=== PATIENT | female | born 1935 | race Caucasian/White ===

== ENCOUNTER → 2020-03-05 09:51 | Outpatient (BNVA) | payer MEDICARE, MEDICAID, SELFPAY | PROVIDERS: Family Provider Family Medicine; PCP Family Medicine; Visit Provider Family Medicine | DX: E11.9 Type 2 diabetes mellitus without complications (principal) | CPT/HCPCS: 36416; 82962; 83036 ==

== ENCOUNTER 2020-04-26 06:00 | Outpatient (RCR) | payer MEDICARE, MEDICAID, SELFPAY | END 2020-05-22 23:59 | disposition home or self-care (01) | LOC: GPT 06:00 | PROVIDERS: Family Provider Family Medicine; PCP Family Medicine; Referring Provider Family Medicine; Visit Provider Family Medicine | DX: R26.9 Unspecified abnormalities of gait and mobility (principal) | CPT/HCPCS: 97110; 97112; 97116; 97162; 97530 ==

== ENCOUNTER 2021-04-03 15:40 | Inpatient (IN) | payer MEDICARE, MEDICAID, SELFPAY ==
[2021-04-03 15:47] VITALS: BP 122/84; PULSE 90; RESP 16; TEMP 37.2; O2SAT 93; BMI 30.2
--- NOTE | 2021-04-03 15:50 | CT_ITS ---
WS: [id number] CT cervical spine. Additional two-dimensional coronal and sagittal reconstruction was performed. 04/03 Clinical Data: fall Comparison: None. DLP: 566.[address] scans at [facility] use at least one of these dose optimization techniques: automat ed exposure control; mA and/or kV adjustment per patient size (includes targeted exams where dose is matched to clinical indication); or iterative reconstruction. Findings: No compression fractures are seen. There is disc space narrowing at C4-C5, C5-C6 and C6-C7. There is anterior and posterior osteophyte formation at C5-C7. The spinous processes are in good alignment. Th e odontoid is unremarkable. There is no prevertebral soft tissue swelling. The soft tissues of the ce rvical spine and the lung apices are not remarkable. C2-C3: No disc bulge, canal stenosis or foraminal stenosis is seen. C3-C4: No disc bulge, canal stenosis or foraminal stenosis is seen. C4-C5: Posterior osteophyte formation causing mild canal stenosis. C5-C6: There is posterior osteophyte formation causing mild canal stenosis. C6-C7: There is posterior osteophyte formation causing mild canal stenosis. C7-T1: No disc bulge, canal stenosis or foraminal stenosis is seen. CT/CT cervical spin wo con* [id number] Impression: 1. Negative for cervical spine fracture. 2. Multilevel disc narrowing, posterior and anterior osteophyte formation and m ild canal stenosis.
--- NOTE | 2021-04-03 15:50 | XRR_ITS ---
PROCEDURE INFORMATION: Exam: XR Chest Exam date and time: 04/03/2021 3:50 PM Age: 85 years old Clinical indication: Other: AMS TECHNIQUE: Imaging protocol: XR of the chest. Views: 1 view. COMPARISON: CT cervical spin wo con* [id number] 04/03/2021 4:05 PM FINDINGS: Lungs: Left basilar atelectasis is appreciated. The lungs are otherwise clear. No acute airspace process is seen. Pleural spaces: Unremarkable. No pleural effusion. No pneumothorax. Heart/Mediastinum: Unremarkable. No cardiomegaly. Bones/joints: Chronic proximal left humeral fracture is noted. An orthopedic anchor is also seen in the left humeral neck. No acute fracture is detected XR/XR chest 1V portable [id number] IMPRESSION: Left basilar atelectasis.
--- NOTE | 2021-04-03 15:50 | CT_ITS ---
WS: [id number] CT scan of the head, 04/03/2021 Clinical Data: fall Comparison: None. DLP: 1250.[address] scans at [facility] use at least one of these dose optimization techniques: automat ed exposure control; mA and/or kV adjustment per patient size (includes targeted exams where dose is matched to clinical indication); or iterative reconstruction. Findings: The ventricular system is moderately dilated without shift. No recent infarct or hemorrhage is seen. There are no abnormal intracerebral masses. The cerebellum and brainstem are not remarkable. Bony windows of the skull and skull base show no fractures or erosions. The mastoid air cells, integrated marketing intern al auditory canals, sella turcica and intraorbital contents are unremarkable. There is mucoperiosteal thickening of the right maxillary sinus with nasal septal deviation from left to right. CT/CT head wo con* [id number] Impression: Moderate cerebral atrophy.
--- NOTE | 2021-04-03 15:52 | ECG_ITS ---
[facility] Test Date: 2021-04-03 Pat Name: Miranda Tejada Department: Room: Gender: Female Retail Advertising Account Executive: : 1935 Requested By: Gwyn Leon Order Number: [id number] Reading MD: SIDNEY BYRD Measurements Intervals [place] Rate: 87 P: 46 VT: 171 QRS: -7 QRSD: 89 T: 7 QT: 392 QTc: 473 Interpretive Statements SINUS RHYTHM WITH OCCASIONAL SUPRAVENTRICULAR PREMATURE COMPLEXES MODERATE VOLTAGE CRITERIA FOR LVH, CONSIDER NORMAL VARIANT [MEETS CRITERIA IN ONE OF: R(aVL), S(V1), R(V5), R(V5/V6)+S(V1)] No previous ECG available for comparison Electronically Signed On 04-03-2021 21:22:03 CDT by SIDNEY BYRD [id number]
--- NOTE | 2021-04-03 16:12 | ED_ITS ---
Documented by User: Gwyn Leon MD 04/03/21 16:39 HPI - Fall General: Chief Complaint: Fall Stated Complaint: FALL/ FOUND IN FLOOR/ AMS Time Seen by Provider: 04/03/21 15:50 Source: patient and EMS Mode of arrival: EMS Limitations: no limitations History of Present Illness: HPI Narrative: 85-year-old female with a history of some slight dementia and blindness in the right eye that daughter went to check on her today and she fell in her house and had been laying for 12 to 24 hours. She states she has had some confusion at baseline. Here patient is able answer most my questions appropriately but she does not really remember what happened and has some confusion. She states that she has a neck pain. Denies any worsening improving factors. Patient's granddaughter did test positive for Covid recently and her granddaughter states she has been around her a lot. Patient is afebrile and has no cough. Associated symptoms-after fall: Denies abdominal pain, chest pain, headache(s) or neck pain Review of Systems Const: Denies: fever(s), chills, body aches or change in appetite Eyes: Denies: blurry vision or eye discomfort ENMT: Denies: throat pain or dental pain Card: Denies: chest pain Resp: Denies: dyspnea GI: Denies: abdominal pain, nausea, vomiting or diarrhea : Denies: dysuria Musc: Denies: neck pain or back pain Skin/Breast: Denies: rash Neuro: Denies: headache(s) Psych: Denies: depression Stone/Lymph: Denies: easy bruising All/Imm: Denies: urticaria PFSH ED PFSH: Medical History (Updated 04/03/21 @ 17:51 by Tariq Swift MD) Essential hypertension with goal blood pressure less than 130/80 Mixed hyperlipidemia Social History Smoking and tobacco status: never smoked Alcohol intake: never Physical Exam Const: COMMON NORMALS: no acute distress, patient oriented x3 and healthy appearing HENMT: COMMON NORMALS: normocephalic and atraumatic HEAD & SCALP: n ormocephalic and atraumatic Eye: COMMON NORMALS: Equal, round and reactive pupils present and EOMs intact bilaterally PUPIL: Yes Equal, round and reactive pupils present Neck/C-Spine: COMMON NORMALS: supple OTHER: Neck tenderness Chest: COMMONS NORMALS: normal inspection of the chest and normal palpation of entire chest wall Resp: COMMON NORMALS: normal respiratory effort, No retractions, No use of accessory muscles and clear to auscultation bilaterally AUSCULTATION: clear to auscultation bilaterally Cardio: COMMON NORMALS: regular rate, regular rhythm and No murmurs present (Cardio) RATE: regular rate RHYTHM: regular rhythm GI: COMMON NORMALS: Normal to inspection, nondistended, normoactive bowel sounds present, Soft to palpation, non-tender and no masses PALPATION: Yes Soft to palpation Extremity: COMMON NORMALS: normal to inspection and full ROM Neuro: COMMON NORMALS: patient oriented x3, moves all extremities and no focal motor deficits OTHER: Patient able answer most my questions but does have some confusion Psych: COMMON NORMALS: mental status grossly normal, Normal thought process present and cooperative THOUGHT PROCESS: Normal thought process present Skin: COMMON NORMALS: no rashes or lesions noted and no wounds GENERAL SKIN EXAM: no rashes or lesions noted Course Vital Signs: Vital signs: Vital Signs Temperature 98.9 F 04/03/21 15:47 Pulse Rate 80 04/03/21 17:56 Respiratory Rate 26 H 04/03/21 17:56 Blood Pressure 138/68 04/03/21 17:56 Pulse Oximetry 94 04/03/21 17:56 MDM - Fall Lab Data: Labs: Lab Results 04/03/21 04/03/21 04/03/21 Range/Units 16:17 16:29 16:31 WBC 6.0 (4.0-10.0) 10^3/ uL RBC 6.16 H (4.1-5.3) 10^6/u L Hgb 16.9 H (11.5-15.3) g/dL Hct 52.4 H (37.0-47.0) % MCV 85.1 (81-99) fL MCH 27.4 L (28.0-34.0) pg MCHC 32.3 (30.0-36.0) g/dL RDW 12.8 (12.1-15.1) % Plt Count 189 (130-400) 10^3/c mm MPV 11.5 H (7.4-10.4) fL Neut % (Auto) 70.0 % Lymph % (Auto) 16.4 % Harlan % (Auto) 13.1 % Eos % (Auto) 0.0 % Baso % (Auto) 0.2 % Neut # (Auto) 4.17 (1.8-7.7) 10^3/u L Lymph # (Auto) 1.0 (0.8-4.8) 10^3/u L Harlan # (Auto) 0.8 (0.2-0.9) 10^3/u L Eos # (Auto) 0.0 (0.0-0.8) 10^3/u L Baso # (Auto) 0.0 (0.0-0.1) 10^3/u L Nucleated RBC % (a uto) 0 % Nucleated RBCs # 0.0 /100WBC Sodium (136-145) mmol/L Potassium (3.5-5.1) mmol/L Chloride (98-107) mmol/L Carbon Dioxide (22-29) mmol/L Anion Gap (5-19) BUN (8-23) mg/dL Creatinine (0.5-0.9) mg/dL GFR Calculation Glucose (65-115) mg/dL POC Glucose 166 H (70-110) mg/dL Calculated Osmolal ity (285-295) mOsm/k g Calcium (8.5-10.5) mg/dL Total Bilirubin (0.15-1.2) mg/dL AST (0-32) U/L ALT (0-33) U/L Alkaline Phosphata se (35-105) IU/L Creatine Kinase (26-192) U/L Total Protein (6.6-8.7) g/dL Albumin (3.5-5.2) g/dL Globulin (1.3-4.6) g/dL Urine Color (Yellow) Urine Appearance (CLEAR) Urine pH (5-7) Ur Specific Gravit y (1.005-1.030) Urine Protein (Negative) Urine Glucose (UA) (Normal) Urine Ketones (Negative) Urine Blood (Negative) Urine Nitrate (Negative) Urine Bilirubin (Negative) Urine Urobilinogen (Negative) mg/dL Ur Leukocyte Michelle ase (Negative) Urine RBC (0-2) /hpf Urine WBC (0-5) /hpf Ur Squamous Epith Cells (0-5) /hpf Amorphous Sediment Urine Bacteria (NONE) /hpf Fine Granular Cast s /lpf SARS-CoV-2 Ag (Rap id) Positive H (Negative) 04/03/21 04/03/21 Range/Units 16:31 16:42 WBC (4.0-10.0) 10^3/ uL RBC (4.1-5.3) 10^6/u L Hgb (11.5-15.3) g/dL Hct (37.0-47.0) % MCV (81-99) fL MCH (28.0-34.0) pg MCHC (30.0-36.0) g/dL RDW (12.1-15.1) % Plt Count (130-400) 10^3/c mm MPV (7.4-10.4) fL Neut % (Auto) % Lymph % (Auto) % Harlan % (Auto) % Eos % (Auto) % Baso % (Auto) % Neut # (Auto) (1.8-7.7) 10^3/u L Lymph # (Auto) (0.8-4.8) 10^3/u L Harlan # (Auto) (0.2-0.9) 10^3/u L Eos # (Auto) (0.0-0.8) 10^3/u L Baso # (Auto) (0.0-0.1) 10^3/u L Nucleated RBC % (a uto) % Nucleated RBCs # /100WBC Sodium 141 (136-145) mmol/L Potassium 3.6 (3.5-5.1) mmol/L Chloride 99 (98-107) mmol/L Carbon Dioxide 23 (22-29) mmol/L Anion Gap 22.6 H (5-19) BUN 14 (8-23) mg/dL Creatinine 0.6 (0.5-0.9) mg/dL GFR Calculation Not Reportable Glucose 303 H (65-115) mg/dL POC Glucose (70-110) mg/dL Calculated Osmolal ity 304 H (285-295) mOsm/k g Calcium 8.5 (8.5-10.5) mg/dL Total Bilirubin 0.4 (0.15-1.2) mg/dL AST 43 H (0-32) U/L ALT 23 (0-33) U/L Alkaline Phosphata se 81 (35-105) IU/L Creatine Kinase 1076 H* (26-192) U/L Total Protein 6.7 (6.6-8.7) g/dL Albumin 3.6 (3.5-5.2) g/dL Globulin 3.1 (1.3-4.6) g/dL Urine Color Yellow (Yellow) Urine Appearance Sl hazy (CLEAR) Urine pH 5 (5-7) Ur Specific Gravit y 1.020 (1.005-1.030) Urine Protein 1+ H (Negative) Urine Glucose (UA) 4+ H (Normal) Urine Ketones 2+ H (Negative) Urine Blood 3+ H (Negative) Urine Nitrate Negative (Negative) Urine Bilirubin Neg (Negative) Urine Urobilinogen Norm (Negative) mg/dL Ur Leukocyte Michelle ase Negative (Negative) Urine RBC 0-4 H (0-2) /hpf Urine WBC Rare (0-5) /hpf Ur Squamous Epith Cells 5-10 H (0-5) /hpf Amorphous Sediment Not Reportable Urine Bacteria 1+ H (NONE) /hpf Fine Granular Cast s 0-4 H /lpf SARS-CoV-2 Ag (Rap id) (Negative) Imaging Data^: CT Head: Attestation: I personally reviewed and interpreted this imaging study as follows: Radiologist's impression: [address] [address] [address] Scan Report Signed Patient: Miranda Tejada Unit #: [id number] : 1935 Age/Sex: 85 / F ADM Date: 04/03/21 Loc: ER Room/Bed: Attending Dr: Ordering Provider/Ordering MD: Gwyn Leon MD Date of Service: 04/03/21 Procedure(s): CT head wo con* [id number] Accession Number(s): [id number] Report Number: [id number] WS: [id number] CT scan of the head, 04/03/2021 Clinical Data: fall Comparison: None. DLP: 1250.[address] scans at [facility] use at least one of these dose optimization techniques: automated exposure control; mA and/or kV adjustment per patient size (includes targeted exams where dose is matched to clinical indication); or iterative reconstruction. Findings: The ventricular system is moderately dilated without shift. No recent infarct or hemorrhage is seen. There are no abnormal intracerebral masses. The cerebellum and brainstem are not remarkable. Bony windows of the skull and skull base show no fractures or erosions. The mastoid air cells, internal auditory canals, sella turcica and intraorbital contents are unremarkable. There is mucoperiosteal thickening of the right maxillary sinus with nasal septal deviation from left to right. CT/CT head wo con* [id number] Impression: Moderate cerebral atrophy. Dictated By: Cheryl Pfeiffer MD Signed By: Cheryl Pfeiffer MD Signed Date/Time: 04/03/211617 DD/ [address]: Radiologist's impression: [address] [address] [address] Scan Report Signed Patient: Miranda Tejada Unit #: [id number] : 1935 9 Age/Sex: 85 / F ADM Date: 04/03/21 Loc: ER Room/Bed: Attending Dr: Ordering Provider/Ordering MD: Gwyn Leon MD Date of Service: 04/03/21 Procedure(s): CT cervical spin wo con* [id number] Accession Number(s): [id number] Report Number: [id number] WS: [id number] CT cervical spine. Additional two-dimensional coronal and sagittal reconstruction was performed. 04/03/2021 Clinical Data: fall Comparison: None. DLP: 566.[address] scans at [facility] use at least one of these dose optimization techniques: automated exposure control; mA and/or kV adjustment per patient size (includes targeted exams where dose is matched to clinical indication); or iterative reconstruction. Findings: No compression fractures are seen. There is disc space narrowing at C4-C5, C5- C6 and C6-C7. There is anterior and posterior osteophyte formation at C5-C7. The spinous processes are in good alignment. The odontoid is unremarkable. There is no prevertebral soft tissue swelling. The soft tissues of the cervical spine and the lung apices are not remarkable. C2-C3: No disc bulge, canal stenosis or foraminal stenosis is seen. C3-C4: No disc bulge, canal stenosis or foraminal stenosis is seen. C4-C5: Posterior osteophyte formation causing mild canal stenosis. C5-C6: There is posterior osteophyte formation causing mild canal stenosis. C6-C7: There is posterior osteophyte formation causing mild canal stenosis. C7-T1: No disc bulge, canal stenosis or foraminal stenosis is seen. CT/CT cervical spin wo con* [id number] Impression: 1. Negative for cervical spine fracture. 2. Multilevel disc narrowing, posterior and anterior osteophyte formation and mild canal stenosis. Dictated By: Cheryl Pfeiffer MD Signed By: Cheryl Pfeiffer MD Signed Date/Time: 04/03/211621 Discharge Plan Discharge Patient Disposition: Admitted As Inpatient Clinical Impression: Rhabdomyolysis, COVID-19 Condition: Stable Coding Level of Care Code ED Highway Administrative Engineer for Chg Fwd Exam Comprehensive Documented by User: Tariq Swift MD 04/03/21 18:01 HPI - Fall General: Chief Complaint: Fall Stated Complaint: FALL/ FOUND IN FLOOR/ AMS Time Seen by Provider: 04/03/21 15:50 PFSH ED PFSH: Medical History (Updated 04/03/21 @ 17:51 by Tariq Swift MD) Essential hypertension with goal blood pressure less than 130/80 Mixed hyperlipidemia Social History Smoking and tobacco status: never smoked Alcohol intake: never Course Vital Signs: Vital signs: Vital Signs Temperature 98.9 F 04/03/21 15:47 Pulse Rate 80 04/03/21 17:56 Respiratory Rate 26 H 04/03/21 17:56 Blood Pressure 138/68 04/03/21 17:56 Pulse Oximetry 94 04/03/21 17:56 MDM - Fall MDM Narrative: Medical decision making narrative: 85-year-old female with recent Covid diagnosis from 10 days ago presenting to the emergency room after she was found down. On exam, patient has no complaints of tenderness or signs of trauma. Imaging study within normal limit today. Patient is noted to be hemoconcentrated with a hemoglobin of 6, UA positive for ketones, CPK of 1000. Will be admitted to the hospital for placement given that she lives at home by herself and rehydration. Lab Data: Labs: Lab Results 04/03/21 04/03/21 04/03/21 Range/Units 16:17 16:29 16:31 WBC 6.0 (4.0-10.0) 10^3/ uL RBC 6.16 H (4.1-5.3) 10^6/u L Hgb 16.9 H (11.5-15.3) g/dL Hct 52.4 H (37.0-47.0) % MCV 85.1 (81-99) fL MCH 27.4 L (28.0-34.0) pg MCHC 32.3 (30.0-36.0) g/dL RDW 12.8 (12.1-15.1) % Plt Count 189 (130-400) 10^3/c mm MPV 11.5 H (7.4-10.4) fL Neut % (Auto) 70.0 % Lymph % (Auto) 16.4 % Harlan % (Auto) 13.1 % Eos % (Auto) 0.0 % Baso % (Auto) 0.2 % Neut # (Auto) 4.17 (1.8-7.7) 10^3/u L Lymph # (Auto) 1.0 (0.8-4.8) 10^3/u L Harlan # (Auto) 0.8 (0.2-0.9) 10^3/u L Eos # (Auto) 0.0 (0.0-0.8) 10^3/u L Baso # (Auto) 0.0 (0.0-0.1) 10^3/u L Nucleated RBC % (a uto) 0 % Nucleated RBCs # 0.0 /100WBC Sodium (136-145) mmol/L Potassium (3.5-5.1) mmol/L Chloride (98-107) mmol/L Carbon Dioxide (22-29) mmol/L Anion Gap (5-19) BUN (8-23) mg/dL Creatinine (0.5-0.9) mg/dL GFR Calculation Glucose (65-115) mg/dL POC Glucose 166 H (70-110) mg/dL Calculated Osmolal ity (285-295) mOsm/k g Calcium (8.5-10.5) mg/dL Total Bilirubin (0.15-1.2) mg/dL AST (0-32) U/L ALT (0-33) U/L Alkaline Phosphata se (35-105) IU/L Creatine Kinase (26-192) U/L Total Protein (6.6-8.7) g/dL Albumin (3.5-5.2) g/dL Globulin (1.3-4.6) g/dL Urine Color (Yellow) Urine Appearance (CLEAR) Urine pH (5-7) Ur Specific Gravit y (1.005-1.030) Urine Protein (Negative) Urine Glucose (UA) (Normal) Urine Ketones (Negative) Urine Blood (Negative) Urine Nitrate (Negative) Urine Bilirubin (Negative) Urine Urobilinogen (Negative) mg/dL Ur Leukocyte Michelle ase (Negative) Urine RBC (0-2) /hpf Urine WBC (0-5) /hpf Ur Squamous Epith Cells (0-5) /hpf Amorphous Sediment Urine Bacteria (NONE) /hpf Fine Granular Cast s /lpf SARS-CoV-2 Ag (Rap id) Positive H (Negative) 04/03/21 04/03/21 Range/Units 16:31 16:42 WBC (4.0-10.0) 10^3/ uL RBC (4.1-5.3) 10^6/u L Hgb (11.5-15.3) g/dL Hct (37.0-47.0) % MCV (81-99) fL MCH (28.0-34.0) pg MCHC (30.0-36.0) g/dL RDW (12.1-15.1) % Plt Count (130-400) 10^3/c mm MPV (7.4-10.4) fL Neut % (Auto) % Lymph % (Auto) % Harlan % (Auto) % Eos % (Auto) % Baso % (Auto) % Neut # (Auto) (1.8-7.7) 10^3/u L Lymph # (Auto) (0.8-4.8) 10^3/u L Harlan # (Auto) (0.2-0.9) 10^3/u L Eos # (Auto) (0.0-0.8) 10^3/u L Baso # (Auto) (0.0-0.1) 10^3/u L Nucleated RBC % (a uto) % Nucleated RBCs # /100WBC Sodium 141 (136-145) mmol/L Potassium 3.6 (3.5-5.1) mmol/L Chloride 99 (98-107) mmol/L Carbon Dioxide 23 (22-29) mmol/L Anion Gap 22.6 H (5-19) BUN 14 (8-23) mg/dL Creatinine 0.6 (0.5-0.9) mg/dL GFR Calculation Not Reportable Glucose 303 H (65-115) mg/dL POC Glucose (70-110) mg/dL Calculated Osmolal ity 304 H (285-295) mOsm/k g Calcium 8.5 (8.5-10.5) mg/dL Total Bilirubin 0.4 (0.15-1.2) mg/dL AST 43 H (0-32) U/L ALT 23 (0-33) U/L Alkaline Phosphata se 81 (35-105) IU/L Creatine Kinase 1076 H* (26-192) U/L Total Protein 6.7 (6.6-8.7) g/dL Albumin 3.6 (3.5-5.2) g/dL Globulin 3.1 (1.3-4.6) g/dL Urine Color Yellow (Yellow) Urine Appearance Sl hazy (CLEAR) Urine pH 5 (5-7) Ur Specific Gravit y 1.020 (1.005-1.030) Urine Protein 1+ H (Negative) Urine Glucose (UA) 4+ H (Normal) Urine Ketones 2+ H (Negative) Urine Blood 3+ H (Negative) Urine Nitrate Negative (Negative) Urine Bilirubin Neg (Negative) Urine Urobilinogen Norm (Negative) mg/dL Ur Leukocyte Michelle ase Negative (Negative) Urine RBC 0-4 H (0-2) /hpf Urine WBC Rare (0-5) /hpf Ur Squamous Epith Cells 5-10 H (0-5) /hpf Amorphous Sediment Not Reportable Urine Bacteria 1+ H (NONE) /hpf Fine Granular Cast s 0-4 H /lpf SARS-CoV-2 Ag (Rap id) (Negative) Discharge Plan Discharge Patient Disposition: Admitted As Inpatient Clinical Impression: Rhabdomyolysis, COVID-19 Condition: Stable Coding Level of Care Code ED Highway Administrative Engineer for Maribelg Fwd Exam Comprehensive
[2021-04-03 16:30] LABS: Glucose Point of Care 166 mg/dL (70-110)
[2021-04-03 17:10] LABS: Basophils % 0.2 %; Hematocrit 52.4 % (37.0-47.0); Hemoglobin 16.9 g/dL (11.5-15.3); Lymphocytes % 16.4 %; Mean Corpuscular HGB Conc 32.3 g/dL (30.0-36.0); Mean Corpuscular Hemoglobin 27.4 pg (28.0-34.0); Mean Corpuscular Volume 85.1 fL (81-99); Mean Platelet Volume 11.5 fL (7.4-10.4); Monocytes # 0.8 10^3/uL (0.2-0.9); Monocytes % 13.1 %; Neutrophils # 4.17 10^3/uL (1.8-7.7); Nucleated Red Blood Cells % 0 %; Platelet Count 189 10^3/cmm (130-400); Red Blood Count 6.16 10^6/uL (4.1-5.3); Red Cell Distribution Width 12.8 % (12.1-15.1)
[2021-04-03 17:28] LABS: SARS Covid-2 Antigen Positive (Negative)
[2021-04-03 17:31] LABS: Add Urine Microscopic? YES; Bilirubin Urine Neg (Negative); Blood Urine 3+ (Negative); Glucose Urine UA 4+ (Normal); Ketones Urine 2+ (Negative); Leukocyte Esterase Urine Negative (Negative); Nitrate Urine Negative (Negative); Protein Urine 1+ (Negative); Urine Appearance SL Hazy (CLEAR); Urine Color Yellow (Yellow); Urobilinogen Urine Norm (Negative); pH Urine 5 (5-7)
[2021-04-03 17:33] LABS: Add Urine Culture? No; Bacteria Urine 1+ /hpf; Fine Granular Casts Urine 0-4 /lpf; RBC Urine 0-4 /hpf (0-2); WBC Urine RARE /hpf (0-5)
[2021-04-03 17:42] LABS: Alanine Aminotransferase 23 U/L (0-33); Albumin Level 3.6 g/dL (3.5-5.2); Alkaline Phosphatase 81 IU/L (35-105); Anion Gap 22.6 (5-19); Aspartate Amino Transferase 43 U/L (0-32); Blood Urea Nitrogen 14 mg/dL (8-23); Calcium 8.5 mg/dL (8.5-10.5); Carbon Dioxide 23 mmol/L (22-29); Chloride 99 mmol/L (98-107); Creatinine Clr Calc Pharmacy 46.8393; Globulin 3.1 g/dL (1.3-4.6); Glucose 303 mg/dL (65-115); Osmolality Calculated 304 mOsm/kg (285-295); Potassium 3.6 mmol/L (3.5-5.1); Sodium 141 mmol/L (136-145); Total Bilirubin 0.4 mg/dL (0.15-1.2); Total Protein 6.7 g/dL (6.6-8.7)
[2021-04-03 17:47] LABS: Creatine Phosphokinase 1076 U/L (26-192)
[2021-04-03 17:56] VITALS: BP 138/68; PULSE 80; RESP 26; O2SAT 94
[2021-04-03 19:11] VITALS: BP 145/72; PULSE 78; RESP 18; O2SAT 94
[2021-04-03] MEDS: sodium chloride 0.9% 1,000 ML 75 ML IV (19:31)
[2021-04-03] MEDS: enoxaparin 40 mg/0.4 mL Syringe SUBCUT (19:31)
--- NOTE | 2021-04-03 19:42 | P.HP_ITS ---
Providers/Chief Complaint Admitting Physician: Ryan Horton Primary Care Provider: Luis Sparks DO Chief Complaint: FALL/ FOUND IN FLOOR/ AMS History of Present Illness 85-year-old female with a past medical history significant for dementia, right eye blindness,Hypertension, hyperlipidemia, and diabetes mellitus who presented to the hospital after she was found lying on the ground for over 12 hours. Patient apparently lives at home alone. Given her dementia she was not able to provide history leading to. ER visit.Upon arrival to emergency room patients initial laboratory workup showed a WBC of 6.0, hemoglobin 16.9, hematocrit of 52.4 and a platelet count of 189.Sodium 141, potassium 3.6, chloride 99, bicarb 23, BUN 14 and creatinine of 0.6. Glucose was elevated at 3 3.AST of 43, ALT 23, alkaline phosphatase 81. CPK level was 1076. Urinalysis was negative for nitrites and leukocyte esterase.COVID-19 antigen was positive.Vital signs on arrival showed a temperature of 98.7, heart rate of 88, respiratory rate of 16, oxygen saturation 95% and blood pressure of 164/100.Imaging studies included a chest x-ray which showed left basilar atelectasis otherwise unremarkable. Head and cervical CT did not show any evidence of acute abnormality. Upon admission patient was started on IVF. Review of Systems General: Reports: ROS unobtainable due to mental status Medications/Allergies Home Medications Medication Instructions Recorded Confirmed Last Taken Type blood sugar diagnostic #200 each 03/07/20 04/03/21 Unknown Rx lancets 18 gauge #200 each 03/07/20 04/03/21 Unknown Rx latanoprost 0.005 % eye drops 1 drop OPHTHALMIC (EYE) QDAY 03/19/20 04/03/21 04/02/21 History timolol 0.25 % eye drops 1 drop OPHTHALMIC (EYE) BID 03/19/20 04/03/21 Unknown History blood-glucose meter #1 each 06/28/20 04/03/21 Unknown Rx metformin 500 mg tablet 500 mg PO .COMPLEX #60 tab 07/15/20 04/03/21 Unknown Rx Celebrex 200 mg PO DAILY 04/03/21 04/03/21 Unknown History enalapril maleate 20 mg PO DAILY 04/03/21 04/03/21 Unknown History Allergies Allergy/AdvReac Type Severity Reaction Status Date / Time adhesive AdvReac Mild unknown Verified 03/19/20 10:07 PFSH Acute PFSH: Medical History (Updated 04/03/21 @ 19:50 by Ryan Horton MD) Diabetes mellitus type 2, uncontrolled Essential hypertension with goal blood pressure less than 130/80 Mixed hyperlipidemia Social History Smoking and tobacco status: never smoked Alcohol intake: never Vitals/I&O/Wt Last Vital Signs Temp 98.9 F 04/03/21 15:47 Pulse 78 04/03/21 19:11 Resp 18 04/03/21 19:11 BP 145/72 04/03/21 19:11 Pulse Ox 94 04/03/21 19:11 Weight last 48 hrs Weight 72.575 kg Physical Exam Narrative: EXAM NARRATIVE: General - Alert awake however slight confusion HEENT : right retinal opacification, left eye normal CVS: NSR CHEST : Non-labored respiration Abd : NT, ND Ext no edema Data : 04/03/21 16:31 04/03/21 16:31 A&P Assessment and plan (1) Fall: Unwitnessed CT head/CT cervical spine - no acute fx C/o right hip pain - will xray r/o fracture Pain control Fall precautions PT/OT consult Unclear if LOC Status: Acute (2) Rhabdomyolysis: Mild CPK elevation NS at 75cc/hr Repeat CPK in am Status: Acute (3) COVID-19: No respiratory complaints Chest xray - Left basilar atelectasis Weaned to RA in ER. No indication for decadron or remdesivir Will check covid labs in am contact / droplet precautions Status: Acute (4) Mixed hyperlipidemia: verify home meds Status: Acute (5) Essential hypertension with goal blood pressure less than 130/80: Verify home meds Status: Acute (6) Diabetes mellitus type 2, uncontrolled: Diabetic diet Sliding scale insulin A1c in am Hold metformin Status: Acute (7) DVT prophylaxis: Lovenox 40 mg SQ daily Status: Acute Additional A&P Information Family requested placement to SNF Consult SW/CM to arrange. Attestations Medical Necessity Statement*: anticipate less than 2 midnight stay in hospital for eval and treatment of fall, acute rhabdo rq ivf and placement. Time Spent in Patient Care: Greater than 35 minutes (>than 50% of time spent in counselling and/or direct pt care on unit) . Coding Level of Care Code Acute Heavy Duty Truck Mechanic for Chg Fwd Diagnoses Fall W19.XXXA Rhabdomyolysis M62.82 COVID-19 U07.1 Mixed hyperlipidemia E78.2 Essential hypertension with goal blood pressure less than 130/80 I10 Diabetes mellitus type 2, uncontrolled E11.65 DVT prophylaxis Z29.9
[2021-04-03 20:00] VITALS: BP 140/74; PULSE 89; RESP 16; TEMP 37.2; O2SAT 90
[2021-04-03] MEDS: sodium chloride 0.9% 1,000 ML 100 ML IV (20:39)
[2021-04-03 20:48] LABS: Glucose Point of Care 292 mg/dL (70-110)
[2021-04-04] VITALS (8 sets, daily range): BP systolic 154–183; BP diastolic 71–81; PULSE 56–83; RESP 16–24; TEMP 36.4–37.4; O2SAT 90–93
[2021-04-04] MEDS: sodium chloride 0.9% 1,000 ML 100 ML IV ×2 (02:22→15:39)
--- NOTE | 2021-04-04 03:54 | PC.NURSE ---
TELEPHONE ORDER/READ BACK TO CHANGE DIET FROM REG TO CC (MD GRECIA)
[2021-04-04 05:27] LABS: Basophils % 0.2 %; Hematocrit 46.9 % (37.0-47.0); Lymphocytes # 1.8 10^3/uL (0.8-4.8); Lymphocytes % 26.9 %; Mean Corpuscular Hemoglobin 27.7 pg (28.0-34.0); Mean Corpuscular Volume 86.5 fL (81-99); Mean Platelet Volume 11.2 fL (7.4-10.4); Monocytes # 0.9 10^3/uL (0.2-0.9); Monocytes % 13.5 %; Neutrophils % 59.2 %; Nucleated Red Blood Cells % 0 %; Platelet Count 177 10^3/cmm (130-400); Red Blood Count 5.42 10^6/uL (4.1-5.3); White Blood Count 6.6 10^3/uL (4.0-10.0)
[2021-04-04 05:44] LABS: Estmated Average Glucose 214; Hemoglobin A1C 9.1 % (4.0-6.0)
[2021-04-04 06:01] LABS: Alanine Aminotransferase 19 U/L (0-33); Albumin Level 2.7 g/dL (3.5-5.2); Alkaline Phosphatase 67 IU/L (35-105); Anion Gap 14.9 (5-19); Aspartate Amino Transferase 32 U/L (0-32); Blood Urea Nitrogen 14 mg/dL (8-23); Calcium 7.6 mg/dL (8.5-10.5); Carbon Dioxide 24 mmol/L (22-29); Chloride 106 mmol/L (98-107); Creatinine Clr Calc Pharmacy 46.8393; Globulin 2.6 g/dL (1.3-4.6); Glucose 159 mg/dL (65-115); Osmolality Calculated 298 mOsm/kg (285-295); Potassium 2.9 mmol/L (3.5-5.1); Sodium 142 mmol/L (136-145); Total Bilirubin 0.3 mg/dL (0.15-1.2); Total Protein 5.3 g/dL (6.6-8.7)
[2021-04-04 06:09] LABS: Procalcitonin 0.26 ng/mL (0-0.5)
[2021-04-04 06:17] LABS: Creatine Phosphokinase 824 U/L (26-192)
--- NOTE | 2021-04-04 06:21 | PC.NURSE ---
CRITICAL LAB - CK OF 824 DOWN FROM [id number] CALLED TO ON-CALL PROVIDER BY NURSE SAILAJA TRIANA.
[2021-04-04 06:45] LABS: Glucose Point of Care 168 mg/dL (70-110)
[2021-04-04] MEDS: famotidine 20 mg Tablet PO ×2 (09:08→18:01)
--- NOTE | 2021-04-04 10:36 | P.PN_ITS ---
Subjective Subjective: Interval history: Stable overnight Medications: Reviewed: Yes Vitals/I&O/Wt Last Vital Signs Temp 97.5 F L 04/04/21 20:00 Pulse 76 04/04/21 20:00 Resp 24 H 04/04/21 20:00 BP 158/74 04/04/21 20:00 Pulse Ox 90 04/04/21 20:00 04/04/21 04/04/21 04/05/21 14:59 22:59 06:59 Intake Total 1000 / 1000 1240 / 2240 Balance 1000 / 1000 1240 / 2240 Weight last 48 hrs Weight 72.575 kg Physical Exam Narrative: EXAM NARRATIVE: General - Alert awake however slight confusion HEENT : right retinal opacification, left eye normal CVS: NSR CHEST : Non-labored respiration Abd : NT, ND Ext no edema Data : 04/04/21 04:58 04/04/21 04:58 A&P Assessment and plan (1) Fall: Unwitnessed CT head/CT cervical spine - no acute fx C/o right hip pain - will xray r/o fracture Pain control Fall precautions PT/OT consult Unclear if LOC Status: Acute (2) Rhabdomyolysis: Improving Status: Acute (3) COVID-19: No respiratory complaints Chest xray - Left basilar atelectasis Weaned to RA in ER. No indication for decadron or remdesivir Will check covid labs in am contact / droplet precautions Status: Acute (4) Mixed hyperlipidemia: verify home meds Status: Acute (5) Essential hypertension with goal blood pressure less than 130/80: Verify home meds Status: Acute (6) Diabetes mellitus type 2, uncontrolled: Diabetic diet Sliding scale insulin A1c in am Hold metformin Status: Acute (7) DVT prophylaxis: Lovenox 40 mg SQ daily Status: Acute Additional A&P Information Family requested placement to SNF Consult SW/CM to arrange. Attestations Medical Necessity Statement*: will require further hospitalization for management of rhabdo Time Spent in Patient Care: Greater than 35 minutes (>than 50% of time spent in counselling and/or direct pt care on unit) . Coding Level of Care Code Acute Certified Medical Transcriptionist for [facility] Fwd Diagnoses Fall W19.XXXA Rhabdomyolysis M62.82 COVID-19 U07.1 Mixed hyperlipidemia E78.2 Essential hypertension with goal blood pressure less than 130/80 I10 Diabetes mellitus type 2, uncontrolled E11.65 DVT prophylaxis Z29.9
[2021-04-04 10:44] LABS: Glucose Point of Care 159 mg/dL (70-110)
--- NOTE | 2021-04-04 10:56 | PC.CHAP ---
Pastoral Care Encounter/Spiritual Assessment Type of Contact [] Declined registered sales assistant visit [] Patient/Family/Request visit [] Outpatient visit [] Follow-up visit [] Physician referral [] Code/Alert [] Routine visit [] Staff referral [] Actively dying [] Patient sleeping [] Family support [] [] Out of room [] Palliative care [] [] Receiving care in room [] Pre-surgical visit [] Trauma [] Long length of stay [] ICU visit [xx] Other: Isolation Relational/Emotional Strength [] Patient feels connected with others/family/visitors/staff [] Distress [] Loneliness/isolation [] Abandonment Spirituality of Patient [] Person of Ava [] Attends Methodist of their Ava [] Believes in Prayer [] Reads Bible or Alevism materials [] There are Spiritual issues to be addressed Caustic Mixer Interventions [] Prayer [] Active listening [] Non-anxious presence [] Spiritual/emotional support [] Crisis/trauma care [] Spiritual counseling [] Bereavement support [] Provided bereavement packet [] Provided Bible/devotional materials [] Provided toy/stuffed animal, coloring book to patient or family member [] Provided Communion [] Anointing/[place] [] Salvation [] Completed spiritual assessment [] Other: Impact on Illness or Injury [] Angry [] Fearful [] Anxious [] Often cries [] Exhaustion [] Unable to work [] Unable to attend restoration [] Unable to walk/stand [] Unable to read [] Unable to drive [] Unable to eat/drink [] Unable to sleep [] Unable to be with family [] Patient intubated [] Other: Summary Time spent with patient
[2021-04-04 17:51] LABS: Glucose Point of Care 135 mg/dL (70-110)
[2021-04-04] MEDS: enoxaparin 40 mg/0.4 mL Syringe SUBCUT (18:01)
[2021-04-04 21:42] LABS: Glucose Point of Care 192 mg/dL (70-110)
--- NOTE | 2021-04-04 23:00 | PC.NURSE ---
PROVIDER CALLED (MD GRECIA) R/T PT K+ RESULT OF 2.9. TELEPHONE ORDERS/READBACK TO REPLACE WITH POTASSIUM CHLORIDE PO 60 MEQ X1 AND REDRAW LAB IN AM.
[2021-04-04] MEDS: potassium chloride ER 20 mEq Tablet 60 MEQ PO (23:23)
[2021-04-05] VITALS (11 sets, daily range): BP systolic 130–165; BP diastolic 68–76; PULSE 69–94; RESP 16–31; TEMP 36.5–36.9; O2SAT 88–94
[2021-04-05] MEDS: sodium chloride 0.9% 1,000 ML 100 ML IV (01:43)
--- NOTE | 2021-04-05 05:32 | PC.NURSE ---
Shift Note Frequent safety and comfort rounds continue. Orders and/or nursing care completed as indicated. Patient monitored for response to intervention and treatment(s). Education provided includes[SAFETY, ROUTINE TURNING, FLUID REPLACEMENT, AND MEDICATIONS]. Patient and/or door to door sales representative ABLE TO VERBALIZED UNDERSTANDING. Will continue to monitor.
[2021-04-05 07:05] LABS: Glucose Point of Care 148 mg/dL (70-110)
[2021-04-05] MEDS: famotidine 20 mg Tablet PO ×2 (07:38→18:06)
[2021-04-05 07:43] LABS: Alanine Aminotransferase 17 U/L (0-33); Albumin Level 2.5 g/dL (3.5-5.2); Alkaline Phosphatase 56 IU/L (35-105); Anion Gap 14.6 (5-19); Aspartate Amino Transferase 32 U/L (0-32); Blood Urea Nitrogen 12 mg/dL (8-23); Calcium 7.2 mg/dL (8.5-10.5); Carbon Dioxide 21 mmol/L (22-29); Chloride 111 mmol/L (98-107); Creatine Phosphokinase 291 U/L (26-192); Creatinine Clr Calc Pharmacy 46.8393; Globulin 2.4 g/dL (1.3-4.6); Glucose 154 mg/dL (65-115); Osmolality Calculated 299 mOsm/kg (285-295); Potassium 3.6 mmol/L (3.5-5.1); Sodium 143 mmol/L (136-145); Total Bilirubin 0.3 mg/dL (0.15-1.2); Total Protein 4.9 g/dL (6.6-8.7)
--- NOTE | 2021-04-05 13:16 | PM.PN ---
Subjective Subjective: Interval history: No new clinical events overnight. Patient was however started on O2. Was noted to have saturations in the high 80s. Did not appear to be in any respiratory distress. Medications: Reviewed: Yes Vitals/I&O/Wt Last Vital Signs Temp 98.1 F 04/05/21 11:05 Pulse 73 04/05/21 11:05 Resp 19 H 04/05/21 11:05 BP 158/68 04/05/21 11:05 Pulse Ox 88 L 04/05/21 11:05 04/04/21 04/05/21 04/05/21 22:59 06:59 14:59 Intake Total 1240 / 2240 1250 / 3490 978.333 / 978.333 Balance 1240 / 2240 1250 / 3490 978.333 / 978.333 Weight last 48 hrs Weight 72.575 kg Physical Exam Narrative: EXAM NARRATIVE: General - Alert awake however slight confusion HEENT : right retinal opacification, left eye normal CVS: NSR CHEST : Non-labored respiration Abd : NT, ND Ext no edema Data : 04/04/21 04:58 04/05/21 06:56 A&P Assessment and plan (1) Fall: Unwitnessed CT head/CT cervical spine - no acute fx C/o right hip pain - will xray r/o fracture Pain control Fall precautions PT/OT consult Unclear if LOC Status: Acute (2) Rhabdomyolysis: Resolved will DC IV fluid Status: Acute (3) COVID-19: No respiratory complaints Chest xray - Left basilar atelectasis Weaned to RA in ER. -Home O2 eval Supplemental oxygen as needed No indication for remdesivir Decadron 6 mg IV daily started Will check covid labs in am Contact / droplet precautions Status: Acute (4) Mixed hyperlipidemia: Status: Acute (5) Essential hypertension with goal blood pressure less than 130/80: Status: Acute (6) Diabetes mellitus type 2, uncontrolled: Diabetic diet Sliding scale insulin Exacerbated with Decadron Hold metformin Status: Acute (7) DVT prophylaxis: Lovenox 40 mg SQ daily Status: Acute Attestations Medical Necessity Statement*: Require further hospitalization for managmenet of COVID-19 pneumonia Time Spent in Patient Care: Greater than 35 minutes (>than 50% of time spent in counselling and/or direct pt care on unit). Coding Level of Care Code Acute Airport Maintenance Laborer for [facility] Fwd Diagnoses Fall W19.XXXA Rhabdomyolysis M62.82 COVID-19 U07.1 Mixed hyperlipidemia E78.2 Essential hypertension with goal blood pressure less than 130/80 I10 Diabetes mellitus type 2, uncontrolled E11.65 DVT prophylaxis Z29.9
[2021-04-05] MEDS: dexamethasone 10 mg/mL INJ 6 MG IVP (14:09)
--- NOTE | 2021-04-05 16:24 | CTR_ITS ---
PROCEDURE INFORMATION: Exam: CTA Chest With Contrast Exam date and time: 04/05/2021 4:24 PM Age: 85 years old Clinical indication: Other: Increased 02 and covid +; Additional info: Increasing o2 requirements rule out pe TECHNIQUE: Imaging protocol: Computed tomographic angiography of the chest with contrast. 3D rendering (Not supervised by radiologist): MIP and/or 3D reconstructed images were created by the technologist. Radiation optimization: All CT scans at this facility use at least one of these dose optimization techniques: automated exposure control; mA and/or kV adjustment per patient size (includes targeted exams where dose is matched to clinical indication); or iterative reconstruction. Contrast material: OMNI 350; Contrast volume: 62 ml; Contrast route: INTRAVENOUS (IV); COMPARISON: CR XR chest 1V portable [id number] 04/03/2021 4:17 PM RADIATION DOSE METRICS: Total DLP (mGy-cm): 450.08 FINDINGS: Pulmonary arteries: Normal. No pulmonary emboli. Aorta: Unremarkable. No aortic aneurysm. No aortic dissection. Lungs: Scattered geographic ground-glass attenuation lesions throughout both lungs. Moderate emphysema. Regions of pulmonary parenchymal sparing are evident. Negative for endobronchial obstruction. No bronchiectasis. No peripheral honeycombing. Pleural spaces: Unremarkable. No pneumothorax. No pleural effusion. Heart: Unremarkable. No cardiomegaly. No pericardial effusion. Lymph nodes: Unremarkable. No enlarged lymph nodes. Bones/joints: Unremarkable. No acute fracture. Soft tissues: Unremarkable. CT/CT angio chest PE protcl [id number] IMPRESSION: 1. Negative for pulmonary embolism. 2. Scattered airspace disease bilaterally with nonspecific pattern. 3. Imaging features can be seen with COVID-19 pneumonia, though are nonspecific and can occur with a variety of infectious and noninfectious processes. (Reference: Karlo) REFERENCES: Karlo Rodriguez, et al., Radiological Society of [place] Expert Consensus Statement on Reporting Chest CT Findings Related to COVID-19. Endorsed by the Society of Thoracic Radiology, the [place] [employer], and RSNA. Published November 15, 2019. Radiation Dose CTDIVOL = (mGy): DLP = 450.08 (mGy-cm)
[2021-04-05] MEDS: iohexol 350 mg/mL 100 mL Btl IV (17:06)
[2021-04-05 17:44] LABS: Glucose Point of Care 237 mg/dL (70-110)
[2021-04-05] MEDS: remdesivir 200 MG in sodium chloride 0.9% (100 ml) 100 ML 100 MG IV (18:06)
[2021-04-05] MEDS: enoxaparin 40 mg/0.4 mL Syringe SUBCUT (18:06)
[2021-04-05] MEDS: FUROsemide 10 mg/mL SDV 4mL 40 MG IVP (18:06)
[2021-04-05 21:44] LABS: Glucose Point of Care 250 mg/dL (70-110)
[2021-04-05] MEDS: ipratropium-albuterol 3 mL Neb INHALATION (22:07)
[2021-04-06] VITALS (16 sets, daily range): BP systolic 119–139; BP diastolic 59–93; PULSE 76–93; RESP 20–29; TEMP 36.4–37.8; O2SAT 87–100
[2021-04-06] MEDS: ipratropium-albuterol 3 mL Neb INHALATION ×4 (02:43→20:41)
[2021-04-06 06:30] LABS: Hematocrit 46.3 % (37.0-47.0); Hemoglobin 15.2 g/dL (11.5-15.3); Lymphocytes # 0.9 10^3/uL (0.8-4.8); Lymphocytes % 22.6 %; Mean Corpuscular HGB Conc 32.8 g/dL (30.0-36.0); Mean Corpuscular Hemoglobin 27.5 pg (28.0-34.0); Mean Corpuscular Volume 83.9 fl (81-99); Mean Platelet Volume 11.1 fL (7.4-10.4); Monocytes # 0.7 10^3/uL (0.2-0.9); Monocytes % 17.2 %; Neutrophils # 2.33 10^3/uL (1.8-7.7); Neutrophils % 59.9 %; Nucleated Red Blood Cells % 0 %; Platelet Count 205 10^3/cmm (130-400); Red Blood Count 5.52 10^6/uL (4.1-5.3); Red Cell Distribution Width 13.1 % (12.1-15.1); White Blood Count 3.9 10^3/uL (4.0-10.0)
[2021-04-06 06:46] LABS: Glucose Point of Care 170 mg/dL (70-110)
[2021-04-06 06:52] LABS: D Dimer 1.78 ug/mIFEU (0-0.59)
[2021-04-06 07:27] LABS: Procalcitonin 0.16 ng/mL (0-0.5)
[2021-04-06 07:40] LABS: Alanine Aminotransferase 19 U/L (0-33); Albumin Level 2.7 g/dL (3.5-5.2); Alkaline Phosphatase 61 IU/L (35-105); Anion Gap 17.1 (5-19); Aspartate Amino Transferase 38 U/L (0-32); Blood Urea Nitrogen 16 mg/dL (8-23); C Reactive Protein 144.1 mg/L (0.0-4.9); Calcium 7.6 mg/dL (8.5-10.5); Carbon Dioxide 26 mmol/L (22-29); Chloride 103 mmol/L (98-107); Creatine Phosphokinase 147 U/L (26-192); Creatinine Clr Calc Pharmacy 46.8393; Glucose 176 mg/dL (65-115); Osmolality Calculated 301 mOsm/kg (285-295); Potassium 3.1 mmol/L (3.5-5.1); Sodium 143 mmol/L (136-145); Total Bilirubin 0.3 mg/dL (0.15-1.2); Total Protein 5.7 g/dL (6.6-8.7)
[2021-04-06 08:00] LABS: Ferritin 2265 ng/mL (15-150)
--- NOTE | 2021-04-06 08:47 | PC.SOCIAL ---
IM follow up reviewed with Granddaughter Yola since patient is currently on COVID unit. She verbalized understanding and patient is not likely to dc today due to increase in O2 requirement.
[2021-04-06] MEDS: famotidine 20 mg Tablet PO ×2 (09:00→18:14)
[2021-04-06 13:17] LABS: Glucose Point of Care 172 mg/dL (70-110)
[2021-04-06] MEDS: dexamethasone 10 mg/mL INJ 6 MG IVP (14:14)
--- NOTE | 2021-04-06 15:12 | P.PN_ITS ---
Subjective Subjective: Interval history: Patient was noted have worsening respiratory distress overnight. Was placed on high-flow nasal cannula. In transferred to the COVID-19 step-down unit. Addition was started on Remdesivir. Medications: Reviewed: Yes Vitals/I&O/Wt Last Vital Signs Temp 98.0 F 04/06/21 11:09 Pulse 90 04/06/21 11:09 Resp 29 H 04/06/21 11:09 BP 139/93 04/06/21 11:09 Pulse Ox 90 04/06/21 11:09 04/06/21 04/06/21 04/06/21 06:59 14:59 22:59 Intake Total 420 / 1618.333 Balance 420 / 1618.333 Physical Exam Narrative: EXAM NARRATIVE: General - Alert awake however slight confusion HEENT : right retinal opacification, left eye normal CVS: NSR CHEST : Non-labored respiration Abd : NT, ND Ext no edema Data : 04/06/21 06:10 04/06/21 06:10 A&P Assessment and plan (1) COVID-19: Noted to have worsening respiratory distress Chest xray - Left basilar atelectasis Started on high-flow nasal cannula. Wean as tolerated Started on remdesivir Decadron 6 mg IV daily Will check covid labs in am Contact / droplet precautions Status: Acute (2) Fall: Unwitnessed CT head/CT cervical spine - no acute fx C/o right hip pain - will xray r/o fracture Pain control Fall precautions PT/OT consult Unclear if LOC Status: Acute (3) Rhabdomyolysis: Resolved Status: Acute (4) Mixed hyperlipidemia: Status: Acute (5) Essential hypertension with goal blood pressure less than 130/80: Status: Acute (6) Diabetes mellitus type 2, uncontrolled: Diabetic diet Sliding scale insulin Exacerbated with Decadron Hold metformin Status: Acute (7) DVT prophylaxis: Lovenox 40 mg SQ daily Status: Acute Attestations Medical Necessity Statement*: require further hospitalization for management of COVID-19 pneumonia requiring supplemental oxygen and IV Remdesivir. Coding Level of Care Code Acute Aviation Electronics Technician for [facility] Fwd Diagnoses COVID-19 U07.1 Fall W19.XXXA Rhabdomyolysis M62.82 Mixed hyperlipidemia E78.2 Essential hypertension with goal blood pressure less than 130/80 I10 Diabetes mellitus type 2, uncontrolled E11.65 DVT prophylaxis Z29.9
[2021-04-06 17:31] LABS: Glucose Point of Care 200 mg/dL (70-110)
[2021-04-06] MEDS: enoxaparin 40 mg/0.4 mL Syringe SUBCUT (18:13)
[2021-04-06] MEDS: remdesivir 100 MG in sodium chloride 0.9% (100 ml) 100 ML IV (18:14)
[2021-04-06 20:16] LABS: Glucose Point of Care 253 mg/dL (70-110)
[2021-04-07] VITALS (38 sets, daily range): BP systolic 91–139; BP diastolic 49–91; PULSE 77–109; RESP 22–31; TEMP 36.7–37.3; O2SAT 82–97
[2021-04-07] MEDS: ipratropium-albuterol 3 mL Neb INHALATION ×4 (02:04→20:20)
[2021-04-07 04:37] LABS: ABG PCO2 39.4 mmHg (35-45); ABG PH Result 7.51 (7.35-7.45); Arterial Blood Gas Hematocrit 51.8 % (37-47); Base Excess ABG 7.4 mmol/L (-2.0-2.0); Blood Gas Allen Test Pos; Blood Gas Sample Site Radial, left; Blood Gas Sample Type Arterial; HCO3 ABG 31.2 mmol/L (22-26); PO2 ABG 48.3 mmHg (80.0-100.0)
--- NOTE | 2021-04-07 07:00 | XRR_ITS ---
PROCEDURE INFORMATION: Exam: XR Chest Exam date and time: 04/07/2021 7:00 AM Age: 85 years old Clinical indication: Condition or disease; Lung condition and disease; Respiratory failure TECHNIQUE: Imaging protocol: XR of the chest. Views: 1 view. COMPARISON: CR XR chest 1V portable [id number] 04/03/2021 4:17 PM FINDINGS: Lungs: Persistent increased lung markings and interval worsening of hazy airspace opacities involving mainly the left lower lobe, highly concerning for pneumonia. Pleural spaces: Unremarkable. No pleural effusion. No pneumothorax. Heart/Mediastinum: Click stable heart old healed fracture deformity of the left proximal humerus noted. Bones/joints: See Heart/Mediastinum finding. XR/XR chest 1V portable [id number] IMPRESSION: Interval worsening of left lower lobe airspace opacity, concerning for pneumonia.
[2021-04-07 07:09] LABS: Basophils % 0.1 %; Hematocrit 49.8 % (37.0-47.0); Hemoglobin 16.2 g/dL (11.5-15.3); Lymphocytes # 1.1 10^3/uL (0.8-4.8); Lymphocytes % 14.5 %; Mean Corpuscular HGB Conc 32.5 g/dL (30.0-36.0); Mean Corpuscular Hemoglobin 27.7 pg (28.0-34.0); Mean Corpuscular Volume 85.3 fl (81-99); Mean Platelet Volume 11.2 fL (7.4-10.4); Monocytes # 1.1 10^3/uL (0.2-0.9); Monocytes % 13.5 %; Neutrophils # 5.62 10^3/uL (1.8-7.7); Neutrophils % 71.5 %; Nucleated Red Blood Cells % 0 %; Platelet Count 264 10^3/cmm (130-400); Red Blood Count 5.84 10^6/uL (4.1-5.3); Red Cell Distribution Width 13.5 % (12.1-15.1); White Blood Count 7.9 10^3/uL (4.0-10.0)
[2021-04-07 07:15] LABS: Glucose Point of Care 206 mg/dL (70-110)
[2021-04-07 07:33] LABS: D Dimer 1.61 ug/mIFEU (0-0.59)
[2021-04-07 07:37] LABS: Alanine Aminotransferase 16 U/L (0-33); Albumin Level 2.7 g/dL (3.5-5.2); Alkaline Phosphatase 67 IU/L (35-105); Anion Gap 15.1 (5-19); Aspartate Amino Transferase 31 U/L (0-32); Blood Urea Nitrogen 26 mg/dL (8-23); C Reactive Protein 116.4 mg/L (0.0-4.9); Calcium 7.7 mg/dL (8.5-10.5); Carbon Dioxide 28 mmol/L (22-29); Chloride 102 mmol/L (98-107); Creatinine Clr Calc Pharmacy 46.8393; Glucose 211 mg/dL (65-115); Osmolality Calculated 305 mOsm/kg (285-295); Potassium 3.1 mmol/L (3.5-5.1); Sodium 142 mmol/L (136-145); Total Bilirubin 0.4 mg/dL (0.15-1.2); Total Protein 5.7 g/dL (6.6-8.7)
[2021-04-07 07:46] LABS: Procalcitonin 0.18 ng/mL (0-0.5)
[2021-04-07 07:57] LABS: Ferritin 2646 ng/mL (15-150)
[2021-04-07] MEDS: famotidine 20 mg Tablet PO ×2 (08:18→17:34)
--- NOTE | 2021-04-07 08:59 | PC.CHAP ---
Pastoral Care Encounter/Spiritual Assessment Type of Contact [] Declined assembler adjuster visit [] Patient/Family/Request visit [] Outpatient visit [] Follow-up visit [] Physician referral [] Code/Alert [x] Routine visit [] Staff referral [] Actively dying [] Patient sleeping [] Family support [] [] Out of room [] Palliative care [] [x] Receiving care in room [] Pre-surgical visit [] Trauma [] Long length of stay [] ICU visit [x] Other:2a Relational/Emotional Strength [] Patient feels connected with others/family/visitors/staff [] Distress [] Loneliness/isolation [] Abandonment Spirituality of Patient [] Person of Ava [] Attends Moravian of their Ava [] Believes in Prayer [] Reads Bible or Pentecostalism materials [] There are Spiritual issues to be addressed Computer Networking Instructor Adjunct Interventions [x] Prayer [] Active listening [] Non-anxious presence [] Spiritual/emotional support [] Crisis/trauma care [] Spiritual counseling [] Bereavement support [] Provided bereavement packet [] Provided Bible/devotional materials [] Provided toy/stuffed animal, coloring book to patient or family member [] Provided Communion [] Anointing/[place] [] Salvation [x] Completed spiritual assessment [] Other: Impact on Illness or Injury [] Angry [] Fearful [] Anxious [] Often cries [] Exhaustion [] Unable to work [] Unable to attend religious [] Unable to walk/stand [] Unable to read [] Unable to drive [] Unable to eat/drink [] Unable to sleep [] Unable to be with family [] Patient intubated [] Other: Summary Time spent with patient
[2021-04-07 11:44] LABS: Glucose Point of Care 197 mg/dL (70-110)
[2021-04-07] MEDS: dexamethasone 10 mg/mL INJ 6 MG IVP (12:36)
--- NOTE | 2021-04-07 13:41 | PC.OT ---
Occupational therapy attempted, patient sleeping deeply and would not wake enough to participate. Will attempt again tomorrow.
--- NOTE | 2021-04-07 14:32 | PC.SLP ---
Patient not seen due to BiPap requirements and unable to be awakened to participate in therapy.
[2021-04-07] MEDS: FUROsemide 10 mg/mL SDV 4mL 40 MG IVP (15:22)
[2021-04-07 17:24] LABS: Glucose Point of Care 213 mg/dL (70-110)
[2021-04-07] MEDS: remdesivir 100 MG in sodium chloride 0.9% (100 ml) 100 ML IV (17:34)
[2021-04-07] MEDS: enoxaparin 40 mg/0.4 mL Syringe SUBCUT (17:34)
[2021-04-07] MEDS: nystatin powder 15 gm Btl 1 APPLIC TOPICAL (17:35)
--- NOTE | 2021-04-07 17:38 | PM.PN ---
Subjective Subjective: Interval history: Patient was placed on BiPAP overnight. Medications: Reviewed: Yes Vitals/I&O/Wt Last Vital Signs Temp 98.7 F 04/07/21 16:00 Pulse 89 04/07/21 17:00 Resp 23 H 04/07/21 16:00 BP 135/76 04/07/21 16:00 Pulse Ox 90 04/07/21 17:00 04/07/21 04/07/21 04/07/21 06:59 14:59 22:59 Intake Total 0 / 0 Balance 0 / 0 Physical Exam Narrative: EXAM NARRATIVE: General - on BiPAP HEENT : right retinal opacification, left eye normal CVS: NSR CHEST : on BiPAP Abd : NT, ND Ext no edema Urinary Catheter Management^: Bruce: Cath Placed During This Visit: yes Urinary Catheter Date of Insertion: 04/07/21 Urinary Catheter Time of Insertion: 16:13 Data : 04/07/21 05:34 04/07/21 05:34 A&P Assessment and plan (1) COVID-19: Noted to have worsening respiratory distress Chest xray - Left basilar atelectasis Remdesivir 5 day treatment protocol Decadron 6 mg IV daily total 10 day treatment Continue BiPAP p.r.n. Wean as tolerated Initiate on Precedex Addition would give Lasix 20 mg IV x1 Monitoring COVID-19 inflammatory labs Contact / droplet precautions Status: Acute (2) Fall: Unwitnessed CT head/CT cervical spine - no acute fx C/o right hip pain - will xray r/o fracture Pain control Fall precautions PT/OT consult Unclear if LOC Status: Acute (3) Rhabdomyolysis: Resolved Status: Acute (4) Mixed hyperlipidemia: Status: Acute (5) Essential hypertension with goal blood pressure less than 130/80: Status: Acute (6) Diabetes mellitus type 2, uncontrolled: Diabetic diet Sliding scale insulin Exacerbated with Decadron Hold metformin Status: Acute (7) DVT prophylaxis: Lovenox 40 mg SQ daily Status: Acute Attestations Medical Necessity Statement*: Will require further hospitalization for management of COVID-19 related respiratory failure requiring positive-pressure ventilation Time Spent in Patient Care: Greater than 35 minutes (>than 50% of time spent in counselling and/or direct pt care on unit). Coding Level of Care Code Acute Biophysics Teacher for [facility] Fwd Diagnoses COVID-19 U07.1 Fall W19.XXXA Rhabdomyolysis M62.82 Mixed hyperlipidemia E78.2 Essential hypertension with goal blood pressure less than 130/80 I10 Diabetes mellitus type 2, uncontrolled E11.65 DVT prophylaxis Z29.9
[2021-04-07] MEDS: FUROsemide 10 mg/mL SDV 2mL 20 MG IVP (17:58)
[2021-04-07] MEDS: dexmedetomidine 400 MCG in sodium chloride 0.9% (100 ml) 100 ML IV (17:58)
--- NOTE | 2021-04-07 17:58 | PC.RESP ---
RT Shift Note Frequent safety and respiratory rounds continue. Orders completed as indicated. Patient monitored pre and post treatments throughout shift. Patient tolerated treatments appropriately. Condition did not change. Patient and/or loan representative educated on respiratory treatment and medications. Patient and/or loan representative needs reinforcement on education. Will continue to monitor patient progress.
[2021-04-07] MEDS: potassium chloride premix 100 ML 50 MEQ IV (18:17)
[2021-04-07] MEDS: lidocaine 1% INJ 20 mL 5 ML IV (18:18)
[2021-04-07 21:17] LABS: Glucose Point of Care 320 mg/dL (70-110)
--- NOTE | 2021-04-07 22:20 | PC.RESP ---
RT Shift Note Frequent safety and respiratory rounds continue. Orders completed as indicated. Patient monitored pre and post treatments throughout shift. Patient [Did] tolerate treatments appropriately. Condition [DidNotChange]. Patient and/or automobile rental representative educated on respiratory treatment and medications. Patient and/or automobile rental representative [ResponseToTeaching]. Will continue to monitor patient progress.
[2021-04-07 23:48] LABS: Glucose Point of Care 97 mg/dL (70-110)
[2021-04-08] VITALS (89 sets, daily range): BP systolic 72–159; BP diastolic 44–113; PULSE 66–106; RESP 17–37; TEMP 36.2–37.7; O2SAT 77–98
[2021-04-08] MEDS: ipratropium-albuterol 3 mL Neb INHALATION ×4 (02:54→20:05)
--- NOTE | 2021-04-08 06:30 | PC.NURSE ---
The blood sugar that was taken at 2326 on the did not belong to this patient, it actually belong to the patient staying in .
--- NOTE | 2021-04-08 07:32 | PC.NURSE ---
At the beginning of the overnight caregiver the patient had an oxygen saturation hovering in the low 80's. There was a precedex drip that had been started and as that trip was titrated up the patient began to calm more down, and thier oxygen saturation crept up into the 90's. The patient during the entire shift was quite resistant to any care and even managed to pull out her IV in the left forearm/wrist. The blood pressure and heart rate were elevated at times, but this was during episodes of the patient being awake, moving around, and trying to pulls things out. The blood sugar at the beginning of shift was high enough that the patient received 10 units of short-acting insulin. The patient remained on BiPAP the entire shift.
[2021-04-08 07:52] LABS: Glucose Point of Care 275 mg/dL (70-110)
--- NOTE | 2021-04-08 07:56 | P.PN_ITS ---
Subjective Subjective: Interval history: Patient was requiring 100% FiO2.Discussed care with patients family and code status was changed to do resuscitate. Medications: Reviewed: Yes Vitals/I&O/Wt Last Vital Signs Temp 97.8 F 04/09/21 04:55 Pulse 114 H 04/09/21 04:55 Resp 18 04/09/21 04:55 BP 124/91 04/09/21 04:55 Pulse Ox 88 L 04/09/21 04:55 04/08/21 04/09/21 04/09/21 22:59 06:59 14:59 Intake Total 100 / 417.734 Output Total 175 / 175 100 / 275 Balance -75 / 242.734 -100 / 142.734 Physical Exam Narrative: EXAM NARRATIVE: General - on BiPAP HEENT : right retinal opacification, left eye normal CVS: NSR CHEST : on BiPAP Abd : NT, ND Ext no edema Urinary Catheter Management^: Bruce: Cath Placed During This Visit: yes Reason for Continuing Indwelling Catheter: Other Urinary Catheter Date of Insertion: 04/07/21 Urinary Catheter Time of Insertion: 16:13 Data : 04/07/21 05:34 04/07/21 05:34 A&P Assessment and plan (1) COVID-19: Noted to have worsening respiratory distress Chest xray - Left basilar atelectasis Remdesivir 5 day treatment protocol Decadron 6 mg IV daily total 10 day treatment Continue BiPAP p.r.n. Wean as tolerated Hold Precedex due to hypotension Monitoring COVID-19 inflammatory labs Contact / droplet precautions Status: Acute (2) Fall: Unwitnessed CT head/CT cervical spine - no acute fx C/o right hip pain - will xray r/o fracture Pain control Fall precautions PT/OT consult Unclear if LOC Status: Acute (3) Rhabdomyolysis: Resolved Status: Acute (4) Mixed hyperlipidemia: Status: Acute (5) Essential hypertension with goal blood pressure less than 130/80: Status: Acute (6) Diabetes mellitus type 2, uncontrolled: Diabetic diet Sliding scale insulin Exacerbated with Decadron Hold metformin Status: Acute (7) DVT prophylaxis: Lovenox 40 mg SQ daily Status: Acute Additional A&P Information care discussed with family. Transition to a and D. Progressive decline. Prognosis guarded Attestations Medical Necessity Statement*: require further hospitalization for management of COVID-19 Time Spent in Patient Care: Greater than 35 minutes (>than 50% of time spent in counselling and/or direct pt care on unit) . Coding Level of Care Code Acute Unified Communications Engineer for [facility] Fwd Diagnoses COVID-19 U07.1 Fall W19.XXXA Rhabdomyolysis M62.82 Mixed hyperlipidemia E78.2 Essential hypertension with goal blood pressure less than 130/80 I10 Diabetes mellitus type 2, uncontrolled E11.65 DVT prophylaxis Z29.9
[2021-04-08] MEDS: nystatin powder 15 gm Btl 1 APPLIC TOPICAL ×2 (08:10→17:06)
--- NOTE | 2021-04-08 09:16 | PC.CHAP ---
Pastoral Care Encounter/Spiritual Assessment Type of Contact [] Declined site safety representative visit [] Patient/Family/Request visit [] Outpatient visit [] Follow-up visit [] Physician referral [] Code/Alert [x] Routine visit [] Staff referral [] Actively dying [] Patient sleeping [] Family support [] [] Out of room [] Palliative care [] [] Receiving care in room [] Pre-surgical visit [] Trauma [] Long length of stay [] ICU visit [x] Other: 2a Relational/Emotional Strength [] Patient feels connected with others/family/visitors/staff [] Distress [] Loneliness/isolation [] Abandonment Spirituality of Patient [] Person of Ava [] Attends Taoist of their Ava [] Believes in Prayer [] Reads Bible or Anabaptist materials [] There are Spiritual issues to be addressed Assembler Type Bar And Segment Interventions [x] Prayer [] Active listening [] Non-anxious presence [] Spiritual/emotional support [] Crisis/trauma care [] Spiritual counseling [] Bereavement support [] Provided bereavement packet [] Provided Bible/devotional materials [] Provided toy/stuffed animal, coloring book to patient or family member [] Provided Communion [] Anointing/[place] [] Salvation [x] Completed spiritual assessment [] Other: Impact on Illness or Injury [] Angry [] Fearful [] Anxious [] Often cries [] Exhaustion [] Unable to work [] Unable to attend latter day [] Unable to walk/stand [] Unable to read [] Unable to drive [] Unable to eat/drink [] Unable to sleep [] Unable to be with family [] Patient intubated [] Other: Summary Time spent with patient
--- NOTE | 2021-04-08 10:51 | PC.SOCIAL ---
IM follow up not reviewed today do not anticipate dc in 2 days. CM to follow up at next appt time to review.
[2021-04-08 10:58] LABS: Glucose Point of Care 241 mg/dL (70-110)
--- NOTE | 2021-04-08 11:11 | PC.NURSE ---
Verbally spoke to Yola Jean's granddaughter after Dr. Horton and she states that her and her mother Lakshmi are trying to get power of intake clinician. Both Lakshmi and Yola request that the patient be a DNR at this time.
[2021-04-08] MEDS: dexamethasone 10 mg/mL INJ 6 MG IVP (11:15)
--- NOTE | 2021-04-08 11:23 | PC.OT ---
Discharging patient from skilled occupational therapy at this time. She has been unable to participate meaningfully and is not rehab appropriate at this time. Please send new orders if status of patient changes.
[2021-04-08] MEDS: sodium chloride 0.9% 250 ML IV (13:27)
--- NOTE | 2021-04-08 15:45 | PC.RESP ---
RT Shift Note Frequent safety and respiratory rounds continue. Orders completed as indicated. Patient monitored pre and post treatments throughout shift. Patient tolerate treatments appropriately. Condition did not change. Patient and/or service support representative educated on respiratory treatment and medications. Patient and/or service support representative needs reinforcement. Will continue to monitor patient progress.
[2021-04-08 16:59] LABS: Glucose Point of Care 127 mg/dL (70-110)
[2021-04-08] MEDS: remdesivir 100 MG in sodium chloride 0.9% (100 ml) 100 ML 200 MG IV (17:06)
[2021-04-08] MEDS: enoxaparin 40 mg/0.4 mL Syringe SUBCUT (17:44)
--- NOTE | 2021-04-08 17:56 | PC.RESP ---
RT Shift Note Frequent safety and respiratory rounds continue. Orders completed as indicated. Patient monitored pre and post treatments throughout shift. Patient tolerated treatments appropriately. Condition did not change. Patient and/or wholesale representative educated on respiratory treatment and medications. Patient and/or wholesale representative verbalized understanding. Will continue to monitor patient progress.
--- NOTE | 2021-04-08 18:24 | PC.NURSE ---
Patient's granddaughter called this nurse at this time to leave her work phone number in case she is needed. Phone number is [phone]--Yola Scott.
[2021-04-08 20:57] LABS: Glucose Point of Care 261 mg/dL (70-110)
[2021-04-09] VITALS (18 sets, daily range): BP systolic 72–124; BP diastolic 42–91; PULSE 64–122; RESP 17–32; TEMP 36.4–36.8; O2SAT 87–94
[2021-04-09 05:36] LABS: Glucose Point of Care 282 mg/dL (70-110)
[2021-04-09] MEDS: nystatin powder 15 gm Btl 1 APPLIC TOPICAL ×2 (07:47→16:53)
[2021-04-09 08:08] LABS: Glucose Point of Care 259 mg/dL (70-110)
[2021-04-09] MEDS: ipratropium-albuterol 3 mL Neb INHALATION ×2 (08:50→20:06)
[2021-04-09 11:44] LABS: Glucose Point of Care 305 mg/dL (70-110)
[2021-04-09] MEDS: dexamethasone 10 mg/mL INJ 6 MG IVP (11:52)
--- NOTE | 2021-04-09 12:59 | P.PN_ITS ---
Subjective Subjective: Interval history: Patient remained on 100% FiO2. Noted to have desaturations with any type exertion. Also confused and agitated. No fevers overnight. Medications: Reviewed: Yes Vitals/I&O/Wt Last Vital Signs Temp 98.1 F 04/09/21 11:50 Pulse 118 H 04/09/21 11:50 Resp 27 H 04/09/21 11:50 BP 99/77 04/09/21 11:50 Pulse Ox 90 04/09/21 11:50 04/08/21 04/09/21 04/09/21 22:59 06:59 14:59 Intake Total 100 / 417.734 Output Total 175 / 175 100 / 275 Balance -75 / 242.734 -100 / 142.734 Physical Exam Narrative: EXAM NARRATIVE: General - on BiPAP HEENT : right retinal opacification, left eye normal CVS: NSR CHEST : on BiPAP Abd : NT, ND Ext no edema Urinary Catheter Management^: Bruce: Cath Placed During This Visit: yes Reason for Continuing Indwelling Catheter: Other Urinary Catheter Date of Insertion: 04/07/21 Urinary Catheter Time of Insertion: 16:13 Data : 04/07/21 05:34 04/07/21 05:34 A&P Assessment and plan (1) COVID-19: Noted to have worsening respiratory distress Chest xray - Left basilar atelectasis Remdesivir Completed 5 day treatment protocol Decadron 6 mg IV daily total 10 day treatment Continue BiPAP -wean as tolerated Hold Precedex due to hypotension Monitoring COVID-19 inflammatory labs Ativan added for agitation Contact / droplet precautions Status: Acute (2) Fall: Unwitnessed CT head/CT cervical spine - no acute fx C/o right hip pain - will xray r/o fracture Pain control Fall precautions PT/OT consult Unclear if LOC Status: Acute (3) Rhabdomyolysis: Resolved Status: Acute (4) Mixed hyperlipidemia: Status: Acute (5) Essential hypertension with goal blood pressure less than 130/80: Status: Acute (6) Diabetes mellitus type 2, uncontrolled: Diabetic diet Sliding scale insulin Exacerbated with Decadron Hold metformin Status: Acute (7) DVT prophylaxis: Lovenox 40 mg SQ daily Status: Acute Additional A&P Information Prognosis -remains guarded Attestations Medical Necessity Statement*: will require further hospitalization for management of COVID-19 Time Spent in Patient Care: Greater than 35 minutes (>than 50% of time spent in counselling and/or direct pt care on unit) . Coding Level of Care Code Acute Dumpcart Driver for Chg Fwd Diagnoses COVID-19 U07.1 Fall W19.XXXA Rhabdomyolysis M62.82 Mixed hyperlipidemia E78.2 Essential hypertension with goal blood pressure less than 130/80 I10 Diabetes mellitus type 2, uncontrolled E11.65 DVT prophylaxis Z29.9
[2021-04-09] MEDS: LORazepam 2 mg/mL INJ 1 mL 0.5 MG IVP (13:39)
[2021-04-09 14:32] LABS: Basophils # 0.1 10^3/uL (0.0-0.1); Basophils % 0.8 %; Eosinophils # 0.1 10^3/uL (0.0-0.8); Eosinophils % 0.4 %; Hemoglobin 18.3 g/dL (11.5-15.3); Lymphocytes # 0.7 10^3/uL (0.8-4.8); Lymphocytes % 4.3 %; Mean Corpuscular HGB Conc 30.5 g/dL (30.0-36.0); Mean Corpuscular Hemoglobin 27.4 pg (28.0-34.0); Mean Corpuscular Volume 89.8 fl (81-99); Mean Platelet Volume 12.2 fL (7.4-10.4); Monocytes # 0.8 10^3/uL (0.2-0.9); Neutrophils % 88.8 %; Nucleated Red Blood Cells % 0 %; Platelet Count 240 10^3/cmm (130-400); Red Blood Count 6.68 10^6/uL (4.1-5.3); Red Cell Distribution Width 13.7 % (12.1-15.1); White Blood Count 16.7 10^3/uL (4.0-10.0)
[2021-04-09 15:05] LABS: Alanine Aminotransferase 13 U/L (0-33); Albumin Level 2.4 g/dL (3.5-5.2); Alkaline Phosphatase 86 IU/L (35-105); Blood Urea Nitrogen 74 mg/dL (8-23); Carbon Dioxide 27 mmol/L (22-29); Chloride 108 mmol/L (98-107); Creatinine Clr Calc Pharmacy 41.6349; Globulin 3.3 g/dL (1.3-4.6); Glucose 235 mg/dL (65-115); Osmolality Calculated 339 mOsm/kg (285-295); Sodium 150 mmol/L (136-145); Total Bilirubin 0.6 mg/dL (0.15-1.2); Total Protein 5.7 g/dL (6.6-8.7)
[2021-04-09 15:08] LABS: Aspartate Amino Transferase 17 U/L (0-32)
[2021-04-09 15:10] LABS: Anion Gap 17.9 (5-19); Potassium 2.9 mmol/L (3.5-5.1)
[2021-04-09] MEDS: potassium chloride premix 100 ML 25 MEQ IV (15:49)
[2021-04-09 16:32] LABS: Glucose Point of Care 161 mg/dL (70-110)
[2021-04-09] MEDS: dexmedetomidine 400 MCG in sodium chloride 0.9% (100 ml) 100 ML IV (16:41)
[2021-04-09] MEDS: enoxaparin 40 mg/0.4 mL Syringe SUBCUT (16:53)
--- NOTE | 2021-04-09 17:42 | PC.RESP ---
RT Shift Note Frequent safety and respiratory rounds continue. Orders completed as indicated. Patient monitored pre and post treatments throughout shift. Patient tolerated treatments appropriately. Condition did not change. Patient and/or advertising representative educated on respiratory treatment and medications. Patient and/or advertising representative is unable to comprehend at this time. Will continue to monitor patient progress.
[2021-04-09 20:24] LABS: Glucose Point of Care 195 mg/dL (70-110)
[2021-04-09] MEDS: remdesivir 100 MG in sodium chloride 0.9% (100 ml) 100 ML 200 MG IV (20:45)
[2021-04-10] VITALS (12 sets, daily range): BP systolic 61–72; BP diastolic 35–42; PULSE 100–132; RESP 20–35; TEMP 36.6–39.2; O2SAT 88–92
[2021-04-10] MEDS: ipratropium-albuterol 3 mL Neb INHALATION ×2 (01:59→07:59)
[2021-04-10 05:13] LABS: Basophils # 0.1 10^3/uL (0.0-0.1); Basophils % 0.3 %; Eosinophils % 0.2 %; Hematocrit 54.3 % (37.0-47.0); Hemoglobin 16.9 g/dL (11.5-15.3); Lymphocytes # 0.8 10^3/uL (0.8-4.8); Lymphocytes % 4.4 %; Mean Corpuscular HGB Conc 31.1 g/dL (30.0-36.0); Mean Corpuscular Hemoglobin 27.4 pg (28.0-34.0); Mean Corpuscular Volume 88.1 fl (81-99); Mean Platelet Volume 12.7 fL (7.4-10.4); Monocytes # 1.2 10^3/uL (0.2-0.9); Monocytes % 6.7 %; Neutrophils # 15.27 10^3/uL (1.8-7.7); Neutrophils % 87.8 %; Nucleated Red Blood Cells % 0 %; Platelet Count 249 10^3/cmm (130-400); Red Blood Count 6.16 10^6/uL (4.1-5.3); Red Cell Distribution Width 13.8 % (12.1-15.1); White Blood Count 17.4 10^3/uL (4.0-10.0)
[2021-04-10 05:37] LABS: Alanine Aminotransferase 10 U/L (0-33); Albumin Level 2.2 g/dL (3.5-5.2); Alkaline Phosphatase 103 IU/L (35-105); Anion Gap 21.1 (5-19); Aspartate Amino Transferase 16 U/L (0-32); C Reactive Protein 138.4 mg/L (0.0-4.9); Calcium 7.8 mg/dL (8.5-10.5); Carbon Dioxide 26 mmol/L (22-29); Chloride 112 mmol/L (98-107); Globulin 3.1 g/dL (1.3-4.6); Glucose 290 mg/dL (65-115); Magnesium 2.7 mg/dL (1.7-2.3); Osmolality Calculated 360 mOsm/kg (285-295); Potassium 4.1 mmol/L (3.5-5.1); Sodium 155 mmol/L (136-145); Total Bilirubin 0.5 mg/dL (0.15-1.2); Total Protein 5.3 g/dL (6.6-8.7)
[2021-04-10 05:39] LABS: Procalcitonin 2.78 ng/mL (0-0.5)
[2021-04-10 05:41] LABS: D Dimer 2.01 ug/mIFEU (0-0.59)
[2021-04-10 06:03] LABS: Blood Urea Nitrogen 96 mg/dL (8-23); Ferritin 2150 ng/mL (15-150)
[2021-04-10 07:08] LABS: Glucose Point of Care 273 mg/dL (70-110)
--- NOTE | 2021-04-10 10:31 | PC.NURSE ---
Notified patient's grand daughter, Yola, of patient's decline and informed her the family can come to see her.
--- NOTE | 2021-04-10 10:32 | PC.SOCIAL ---
IMM Not Updated Pg. 2of IMM Not updated, patient not anticipated to discharge within 48hours.
[2021-04-10 11:02] LABS: Glucose Point of Care 223 mg/dL (70-110)
[2021-04-10] MEDS: vancomycin 1,000 MG in sodium chloride 0.9% 250 ML 250 MG IV (11:34)
--- NOTE | 2021-04-10 12:19 | PM.PN ---
Subjective Subjective: Interval history: Overnight patient was noted to have worsening respiratory distress. Noted to have o2 sat drop to low 60s with minimal exertion. unresponsive. Precedex was discontinued. Noted to have hypotension with BP low 60s/40s. Did not tolerate BiPAP. Patients family notified who presented to hospital. Yola patients primary caregiver stated patient would not want any agressive measure and in current state wished to proceed with comfort care measures only. Medications: Reviewed: Yes Vitals/I&O/Wt Last Vital Signs Temp 102.5 F H 04/10/21 11:51 Pulse 128 H 04/10/21 11:51 Resp 35 H 04/10/21 11:51 BP 61/42 04/10/21 11:51 Pulse Ox 89 L 04/10/21 11:51 04/09/21 04/10/21 04/10/21 22:59 06:59 14:59 Intake Total 202.961 / 202.961 Output Total 300 / 300 50 / 350 Balance -97.039 / -97.039 -50 / -147.039 Physical Exam Narrative: EXAM NARRATIVE: General - on BiPAP, unresponsive HEENT : right retinal opacification, left eye normal CVS: NSR CHEST : on BiPAP Abd : NT, ND Ext no edema Urinary Catheter Management^: Bruce: Cath Placed During This Visit: yes Reason for Continuing Indwelling Catheter: Other Urinary Catheter Date of Insertion: 04/07/21 Urinary Catheter Time of Insertion: 16:13 Data : 04/10/21 03:55 04/10/21 03:55 A&P Assessment and plan (1) COVID-19: Status: Acute (2) Fall: Status: Acute (3) Rhabdomyolysis: Status: Acute (4) Mixed hyperlipidemia: Status: Acute (5) Essential hypertension with goal blood pressure less than 130/80: Status: Acute (6) Diabetes mellitus type 2, uncontrolled: Status: Acute (7) DVT prophylaxis: Status: Acute Unfortunately patient continued to decline FIo2 100% on Bipap DNI DNR. D/w family - Wished to proceed with comfort care Code status updated No further diagnostic or lab work up Morphine / roxanol Wean off bipap Additional A&P Information Prognosis -remains guarded Attestations Medical Necessity Statement*: continue hospitalization for management of covid 19 related respiratory failure Time Spent in Patient Care: Greater than 35 minutes (>than 50% of time spent in counselling and/or direct pt care on unit). Coding Level of Care Code Acute Training And Development Director for Chg Fwd Diagnoses COVID-19 U07.1 Fall W19.XXXA Rhabdomyolysis M62.82 Mixed hyperlipidemia E78.2 Essential hypertension with goal blood pressure less than 130/80 I10 Diabetes mellitus type 2, uncontrolled E11.65 DVT prophylaxis Z29.9
[2021-04-10] MEDS: piperacillin-tazobactam 3.375 GM in sodium chloride 0.9% (plus) 50 ML IV (12:30)
[2021-04-10] MEDS: LORazepam 2 mg/mL INJ 1 mL 0.5 MG IVP (13:46)
[2021-04-10] MEDS: morphine 4 mg/mL SDV 1 mL IVP ×2 (13:47→14:55)
--- NOTE | 2021-04-10 16:47 | PM.DDS ---
Discharge Providers DDS Date of Admission: 04/03/21 17:50 Date Summary Completed: 04/10/21 Attending Provider at Admission: Ryan Horton Time of : 15:51 Attending Provider at Discharge: Ryan Horton Primary Care Provider: DO DARYL Romano Diagnoses Hospital Diagnoses (1) COVID-19: (2) Fall: (3) Rhabdomyolysis: (4) Mixed hyperlipidemia: (5) Essential hypertension with goal blood pressure less than 130/80: (6) Diabetes mellitus type 2, uncontrolled: (7) DVT prophylaxis: Reason for Visit Reason for Visit: FALL/ FOUND IN FLOOR/ AMS Summary Date and Time of Date of : 04/10/21 Time of : 15:51 Summary Summary: 85-year-old female with a past medical history significant for dementia, right eye blindness,Hypertension, hyperlipidemia, and diabetes mellitus who presented to the hospital after she was found lying on the ground for over 12 hours. Patient apparently lives at home alone. Given her dementia she was not able to provide history leading to. ER visit.Upon arrival to emergency room patients initial laboratory workup showed a WBC of 6.0, hemoglobin 16.9, hematocrit of 52.4 and a platelet count of 189.Sodium 141, potassium 3.6, chloride 99, bicarb 23, BUN 14 and creatinine of 0.6. Glucose was elevated at 3 3.AST of 43, ALT 23, alkaline phosphatase 81. CPK level was 1076. Urinalysis was negative for nitrites and leukocyte esterase.COVID-19 antigen was positive.Vital signs on arrival showed a temperature of 98.7, heart rate of 88, respiratory rate of 16, oxygen saturation 95% and blood pressure of 164/100.Imaging studies included a chest x-ray which showed left basilar atelectasis otherwise unremarkable. Head and cervical CT did not show any evidence of acute abnormality. Upon admission patient was started on IVF. after admission patients CPK level had returned to normal. She was however started to require O2. Was given p.r.n. Lasix. Subsequently required high-flow nasal cannula. Code status was discussed with family who had stated patient is to be a DNI DNR. Patient was started on Precedex drip in addition to BiPAP. She did not tolerate this was requiring up to 100% FiO2. Started to have fever. Empirically started on antibiotics. Patient was progressively worsening. Without intubation patient was decompensating. Patients granddaughter Yola who is her primary caregiver had presented to the hospital at which point patient was transitioned to comfort care measures only. Patient comfortably at 1551 on 04/10/2021 Additional Data Family: at bedside Additional persons at bedside: nursing staff Attending/PCP notified?: I am attending Was code activated?: No Autopsy requested?: No Advance directives?: No (PT UNSURE) Hospice patient?: No Discharge Plan Discharge Patient Disposition: Condition: Stable Probable Cause of Probable cause of : Cardiac arrest DS Attestations Time Spent in /Discharge Care*: greater than 30 min Quality - AMI: AMI present?: No Quality - Stroke: CVA present?: No Symptom Onset Unknown: No Quality - VTE: VTE present?: No Deep Vein Thrombosis/Pulmonary Embolism Present on Admission: No Coding Level of Care Code Acute Director Of District Office for Chg Fwd Diagnoses COVID-19 U07.1 Fall W19.XXXA Rhabdomyolysis M62.82 Mixed hyperlipidemia E78.2 Essential hypertension with goal blood pressure less than 130/80 I10 Diabetes mellitus type 2, uncontrolled E11.65 DVT prophylaxis Z29.9
--- NOTE | 2021-04-10 17:27 | PC.NURSE ---
On 04/10/21 at 1634 MTS Maurice notified by phone of patient passing. MTS deemed patient not candidate for MTS and [facility]ight. Reference # [id number]
--- NOTE | 2021-04-10 20:45 | PC.NURSE ---
home here to berry picker patient. [facility] and all appropriate paperwork signed and given to home.
[2021-04-12 17:36] LABS: ABG PCO2 39.7 mmHg (35-45); ABG PH Result 7.51 (7.35-7.45); Alveolar-Arterial Oxygen Gradi 68.1 mmHg (5-10); Arterial Blood Gas Hematocrit 52.8 % (37-47); Base Excess ABG 7.5 mmol/L (-2.0-2.0); Blood Gas Allen Test Pos; Blood Gas Sample Site Radial, right; Blood Gas Sample Type Arterial; Carboxyhemoglobin 0.1 %THgb (0.4-20.1); HCO3 ABG 31.3 mmol/L (22-26); HGB O2 Sat 97.1 % (95-100); Methemoglobin 0.4 % (0.4-1.5); Oxygen Device BIPAP; Oxygen Saturation ABG 97.6; Potassium Level - ABG 2.8 mmol/L (3.5-5.0); Total Hemoglobin 17.2 g/dL (12-16)
== END 2021-04-10 20:45 | disposition expired | DRG 177 ==
LOC: ER 18:39 → MEDSURG 04-05 10:00 → MS 2A 04-09 05:50 → MEDSURG 04-11 09:33
PROVIDERS: Emergency Medicine; Admitting Provider Hospitalist; Emergency Provider Emergency Medicine; PCP Family Medicine; Visit Provider Hospitalist
DX: U07.1 COVID-19 (principal); J12.82 Pneumonia due to coronavirus disease 2019; M62.82 Rhabdomyolysis; F03.90 Unspecified dementia, unspecified severity, without behavioral disturbance, psychotic disturbance, mood disturbance, and anxiety; H54.40 Blindness, one eye, unspecified eye; W19.XXXA Unspecified fall, initial encounter; Y93.9 Activity, unspecified; Z66 Do not resuscitate; Z51.5 Encounter for palliative care; Y92.009 Unspecified place in unspecified non-institutional (private) residence as the place of occurrence of the external cause; I46.9 Cardiac arrest, cause unspecified; E78.2 Mixed hyperlipidemia; E11.65 Type 2 diabetes mellitus with hyperglycemia; I95.9 Hypotension, unspecified; I10 Essential (primary) hypertension; Z79.4 Long term (current) use of insulin
CPT/HCPCS: 36415; 36416; 36600; 51702; 70450; 71045; 71275; 72125; 80051; 80053; 81001; 82330; 82550; 82728; 82803; 82805; 82962; 83036; 83735; 84145; 85025; 85378; 86140; 87426; 92523; 92610; 93005; 94640; 94660; 96361; 96372; 96374; 97110; 97162; 97165; 97530; 97535; 99285; J1100; J1650; J1815; J1940; J2060; J2270; J2543; J3370; J3480; J7030; J7050; Q9967